=== PATIENT | female | born 1975 | race African-American/Black ===

== ENCOUNTER 2019-01-11 20:18 | Emergency (ER) | payer BC, SELFPAY ==
[2019-01-11] MEDS ORDERED: Ibuprofen 200 MG TAB ONE ×2 (20:47→20:59)
--- NOTE | 2019-01-11 21:13 | RAD ---
LEFT ANKLE THREE VIEWS: History: Ankle injury. FINDINGS: There are no signs of fracture, dislocation, or joint effusion. A plantar calcaneal spur is noted. IMPRESSION: No acute injury. POS: HARRY
--- NOTE | 2019-01-11 21:17 | RAD ---
LEFT FOOT THREE VIEWS: History: Foot injury. FINDINGS: There are no signs of fracture or dislocation. Spur at the plantar fascia is noted. IMPRESSION: No acute injury. POS: HARRY
== END 2019-01-11 21:31 | disposition home or self-care (01) ==
LOC: ERS 20:18
DX: S80.212A Abrasion, left knee, initial encounter (principal); S80.211A Abrasion, right knee, initial encounter; M25.572 Pain in left ankle and joints of left foot; W17.89XA Other fall from one level to another, initial encounter

== ENCOUNTER 2019-07-09 13:03 | Emergency (ER) | payer SELFPAY ==
[2019-07-09 13:32] LABS: Bacteria/HPF 3+ HPF (None Seen); Bilirubin Negative (Negative); Blood, Urine Negative (Negative); Clarity Turbid (Clear); Glucose, Urine (Dipstick) Normal (Negative); Leukocyte 250 Leu/uL (Negative); Nitrite Negative (Negative); Pregnancy Test - Urine (BHCG) Negative (Negative); Pregu Control Bar Appear? YES (CONTROL BAR); Protein, Urine (Dipstick) Negative (Neg-Trace); RBC/HPF 0-3 HPF (0-3); Specific Gravity 1.015 (1.002-1.036); Urobilinogen Normal mg/dL (Less than 2)
[2019-07-09 13:33] LABS: Pregu Control Background? CLEAR/WHITE (CLR/WHITE)
[2019-07-09 13:38] LABS: #Eosinphils 0.1 thou/uL (0.0-0.7); #Lymphocytes 1.9 thou/uL (1.20-3.40); #Monocytes 0.8 thou/uL (0.11-0.59); #Neutrophils 8.5 thou/uL (1.40-6.50); %Basophils 0.4 % (0.0-1.0); %Eosinophils 0.9 % (0.0-10.0); %Lymphocytes 16.8 % (21.0-51.0); %Monocytes 7.2 % (0.0-10.0); %Neutrophils 74.6 % (42.0-75.0); Hemoglobin 9.6 g/dL (12.0-16.0); Mean Corpuscular HGB CONC 31.5 g/dL (32.0-36.0); Mean Corpuscular Hemoglobin 22.4 pg (27.0-31.0); Mean Corpuscular Volume 71.2 fL (78.0-98.0); Mean Platelet Volume 9.6 fL (7.4-10.4); Platelet Count 339 thou/uL (130-400); RBC Distribution Width 16.6 % (11.5-14.5); Red Blood Cell (RBC) Count 4.28 mill/uL (4.20-5.40); White Blood Cell (WBC) Count 11.4 thou/uL (4.8-10.8)
[2019-07-09 14:00] LABS: ALT (SGPT) 12 U/L (8-55); AST (SGOT) 19 U/L (5-34); Albumin 4.1 g/dL (3.5-5.0); Alkaline Phosphatase 158 U/L (40-110); Anion Gap 7 mmol/L (10-20); BUN (Urea Nitrogen) 8 mg/dL (7.0-18.7); Bilirubin, Total 0.5 mg/dL (0.2-1.2); Calc. Creatinine Clearance 0 mL/min (70-130); Carbon Dioxide 23 mmol/L (22-29); Chloride 110 mmol/L (98-107); Estimated GFR-MDRD 79; Globulin 3.6 g/dL (2.4-3.5); Glucose 92 mg/dL (70-105); Lipase 26 U/L (8-78); Potassium 3.8 mmol/L (3.5-5.1); Protein, Total 7.7 g/dL (6.0-8.3); Sodium 136 mmol/L (136-145)
[2019-07-09 14:02] LABS: Hypochromia SLIGHT = 6-15 cells (100X) (0-5/hpf); MDiff Complete? YES; Microcytosis SLIGHT = 6-15 cells (100X) (0-5/hpf); Ovalocytes SLIGHT = 2-5 cells (100X) (0-1/hpf); Platelet Morphology Comment Appears Adequate; Polychromasia SLIGHT = 2-3 cells (100X) (0-2/hpf); Target Cells SLIGHT = 2-5 cells (100X) (0-1/hpf); Tear Drops SLIGHT = 2-5 cells (100X) (0-1/hpf)
[2019-07-09 14:03] LABS: Calcium 12.2 mg/dL (7.8-10.44)
[2019-07-09] MEDS ORDERED: Ketorolac Tromethamine 30 MG/ML VIAL ONE (14:48)
[2019-07-09] MEDS ORDERED: cefTRIAXone\\ROCEPHIN 2 GM VIAL ONE (15:16)
== END 2019-07-09 16:13 | disposition home or self-care (01) ==
LOC: ERS 13:03
DX: N12 Tubulo-interstitial nephritis, not specified as acute or chronic (principal)
CPT/HCPCS: 36415; 80053; 81003; 81015; 81025; 83690; 85025; 87077; 87086; 87186; 96365; 96375; J0696; J1885

== ENCOUNTER 2019-08-28 13:33 | Outpatient (CLI) | payer OTHER ==
--- NOTE | 2019-08-28 14:09 | RAD ---
XR Ankle Lt 3 View STANDARD INDICATION: Acute ankle injury; missed a step and twisted left ankle COMPARISON: Prior exam dated January 11, 2019 FINDINGS: Bones: There is a minimally displaced spiral fracture involving the lateral malleolus. Ankle mortise: Symmetric. Talar Dome: Intact. Subtalar joint: Normal. Visualized hindfoot: Normal. Periarticular soft tissues: There is prominent soft tissue swelling surrounding the ankle. IMPRESSION: 1. Minimally displaced spiral fracture of the lateral malleolus
== END 2019-08-28 13:34 | disposition home or self-care (01) ==
LOC: BICRAD 13:33
PROVIDERS: ATTEND Nurse Practitioner Family
DX: M25.572 Pain in left ankle and joints of left foot (principal); S82.62XA Displaced fracture of lateral malleolus of left fibula, initial encounter for closed fracture

== ENCOUNTER 2020-07-16 08:33 | Emergency (ER) | payer BC, SELFPAY ==
[2020-07-16 09:31] LABS: Hemoglobin 9.4 g/dL (12.0-16.0); Mean Corpuscular Hemoglobin 20.8 pg (27.0-31.0); Mean Corpuscular Volume 69.3 fL (78.0-98.0); Mean Platelet Volume 10.6 fL (7.4-10.4); Platelet Count 340 thou/uL (130-400); RBC Distribution Width 17.8 % (11.5-14.5); Red Blood Cell (RBC) Count 4.53 mill/uL (4.20-5.40)
[2020-07-16 09:49] LABS: ALT (SGPT) 16 U/L (8-55); AST (SGOT) 24 U/L (5-34); Albumin 3.8 g/dL (3.5-5.0); Alkaline Phosphatase 186 U/L (40-110); Anion Gap 11 mmol/L (10-20); BUN (Urea Nitrogen) 7 mg/dL (7.0-18.7); Bilirubin, Total 0.5 mg/dL (0.2-1.2); Calc. Creatinine Clearance 0 mL/min (70-130); Calcium 11.7 mg/dL (7.8-10.44); Carbon Dioxide 19 mmol/L (22-29); Chloride 110 mmol/L (98-107); Estimated GFR-MDRD 85; Globulin 3.4 g/dL (2.4-3.5); Glucose 95 mg/dL (70-105); Lipase 35 U/L (8-78); Potassium 4.3 mmol/L (3.5-5.1); Protein, Total 7.2 g/dL (6.0-8.3); Sodium 136 mmol/L (136-145)
[2020-07-16 09:51] LABS: #Basophils 0.1 thou/uL (0.0-0.2); #Eosinphils 0.1 thou/uL (0.0-0.7); #Lymphocytes 2.1 thou/uL (1.20-3.40); #Neutrophils 8.8 thou/uL (1.40-6.50); %Basophils 0.9 % (0.0-1.0); %Eosinophils 0.8 % (0.0-10.0); %Lymphocytes 17.6 % (21.0-51.0); %Monocytes 7.9 % (0.0-10.0); %Neutrophils 72.9 % (42.0-75.0); Anisocytosis SLIGHT = 6-15 cells (100X) (0-5/hpf); Hypochromia SLIGHT = 6-15 cells (100X) (0-5/hpf); Lymphocytes 22 % (21-51); MDiff Complete? YES; Microcytosis SLIGHT = 6-15 cells (100X) (0-5/hpf); Monocytes 14 % (0-10); Neutrophil 60 % (42-75); Platelet Morphology Comment Appears Adequate; Reactive Lymphocytes 4 % (0-10)
[2020-07-16 10:54] LABS: Bacteria/HPF None Seen HPF (None Seen); Bilirubin Negative (Negative); Blood, Urine Trace (Negative); Clarity Clear (Clear); Glucose, Urine (Dipstick) Normal (Negative); Ketone, Urine Negative (Negative); Leukocyte Negative Leu/uL (Negative); Nitrite Negative (Negative); Protein, Urine (Dipstick) Negative (Neg-Trace); Urobilinogen Normal mg/dL (Less than 2); WBC/HPF 0-3 HPF (0-3)
[2020-07-16 11:49] LABS: BHCG - Serum Negative (NEGATIVE); Pregs Control Background? CLEAR/WHITE (CLR/WHITE); Pregs Control Bar Appear? YES (CONTROL BAR)
[2020-07-16] MEDS ORDERED: Ondansetron PF 4 MG/2 ML Vial ONE (12:06)
[2020-07-16] MEDS ORDERED: Ketorolac Tromethamine 30 MG/ML VIAL ONE (12:06)
[2020-07-16] MEDS ORDERED: Ondansetron ODT 4 MG TAB ONE (12:10)
--- NOTE | 2020-07-16 16:41 | CT ---
CT ABDOMEN AND PELVIS PERFORMED WITHOUT CONTRAST ENHANCEMENT: 07/16/20 HISTORY: Left flank pain. Possible UTI. The lung bases are clear. The liver, spleen, pancreas, and gallbladder regions appear unremarkable gi xavier the limitations of a noncontrast study. Right and left adrenal glands and right and left kidneys are normal in size. Bilateral renal calculi are seen. There is left sided hydronephrosis related to a calculus located just at the ureteropelvic junction on the left measuring in the 5 to 6 mm range. The ureter below this level is nondilated. The re is no significant periaortic or mesenteric adenopathy. CT OF PELVIS PERFORMED WITHOUT CONTRAST ENHANCEMENT: The appendix region appears unremarkable. No adenopathy or mass. No free fluid. 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 Slight irregular ity to the anterior aspect of the end plates may be just related to Modic type changes. IMPRESSION: Bilateral renal calculi with a 5 to 6 mm left ureteropelvic junction calculus associated with some mo derate left sided hydronephrosis. POS: OFF
== END 2020-07-16 13:07 | disposition home or self-care (01) ==
LOC: ERS 08:33
DX: N13.2 Hydronephrosis with renal and ureteral calculous obstruction (principal)
CPT/HCPCS: 36415; 74176; 80053; 81003; 81015; 83690; 84703; 85025; 96374; J1885; J2405; Q0162